=== PATIENT | male | born 1975 | race Caucasian/White ===

== ENCOUNTER 2018-10-03 12:53 | Emergency (ER) | payer SELFPAY ==
[~2018-10-03] VITALS: Ht 160 cm; Wt 73.0 kg
[2018-10-03 13:11] VITALS: Ht 160 cm; Wt 73.0 kg
[2018-10-03 16:47] VITALS: BP 132/87
== END 2018-10-03 15:45 | disposition home or self-care (01) ==
LOC: ED 12:53
DX: R42 Dizziness and giddiness (principal); R11.2 Nausea with vomiting, unspecified; R53.1 Weakness; Z88.0 Allergy status to penicillin